=== PATIENT | female | born 1970 | race Caucasian/White ===

== ENCOUNTER 2017-02-17 17:03 | Emergency (ER) | payer OTHER ==
[2017-02-17] MEDS ORDERED: HALOPERIDOL LACTATE 5 MG/ML VIAL IM ONE ×2 (18:07→18:27)
[2017-02-17 19:31] VITALS: BP 134/93
--- NOTE | 2017-02-18 08:13 | ED Physician Documentation ---
General Adult - HISTORIAN Historian: patient - HPI Stated Complaint: pain Chief Complaint: General Adult Additional Information: Pt. is a 47 y/o white female who states that since an overdose in October she has been experiencing transient and multiple site pain all over her body. Pt. was just at [facility], blood drawn but pt. felt she waited too long with no pain treatment done so she came here. Onset: other (4 months) Timing: still present Severity: moderate Modifying Factors: none Context: spontaneous Quality: sharp Location: multiple Further Comments: no Last known Well Date: 10/23/16 - ROS CONST: no problems EYES/ENT: none CVS/RESP: none GI/: none MS/SKIN/LYMPH: neck pain, leg pain (left) NEURO/PSYCH: headache - PAST HX Past History: other (depression) Surgeries/Procedures: none Allergies/Adverse Reactions: Allergies Allergy/AdvReac Type Severity Reaction Status Date / Time benztropine AdvReac No Reaction Verified 02/17/17 18:53 codeine AdvReac No Reaction Verified 02/17/17 18:53 hydroxyzine AdvReac No Reaction Verified 02/17/17 18:53 latex AdvReac No Reaction Verified 02/17/17 18:53 morphine AdvReac No Reaction Verified 02/17/17 18:53 Home Medications: Ambulatory Orders Medication Instructions Recorded Diazepam [Diazepam] 7.5 mg PO QID 06/01/15 Eszopiclone [Lunesta] 3 mg PO PM 06/01/15 Gabapentin [Neurontin] 300 mg PO TID 06/01/15 Loratadine [Alavert] 10 mg PO BID 06/01/15 Zaleplon [Sonata] 10 mg PO PM 06/01/15 risperiDONE [Risperdal] 0.05 mg PO QID 06/01/15 traMADol HCL [Ultram] 50 mg PO TID 06/01/15 - SOCIAL HX Smoking History: cigarettes Alcohol Use: none Drug Use: marijuana - FAMILY HX Family History: No - VITAL SIGNS Vital Signs: Vital Signs Temp Pulse Resp BP Pulse Ox 97.6 F 85 20 134/93 98 02/17/17 17:05 02/17/17 17:05 02/17/17 17:05 02/17/17 17:05 02/17/17 17:05 - REVIEWED ASSESSMENTS Nursing Assessment Reviewed: Yes Vitals Reviewed: Yes Progress - Results/Orders Results/Orders: ua, uds ordered, labs from [facility] obtained and reviewed - Progress Progress: pt. was given 10 mg Haldol for pain, pt. left ama stating she wasn't about to wait around 3 more hours for no pain control Critical Care Note - Critical Care Note Total Time (mins): 0 ED Results Lab/Radiology - Lab Results Lab Results: see labs - Radiology Radiology Impressions: none ordered - Orders Orders: ED Orders Category Date Time Status Haloperidol Lactate [Haldol] Med 02/17/17 18:27 Discontinued 10 mg IM .STK-MED ONE Haloperidol Lactate [Haldol] Med 02/17/17 18:07 Discontinued 10 mg IM NOW ONE General Adult Physical Exam - PHYSICAL EXAM GENERAL APPEARANCE: moderate distress EENT: eye inspection normal, ENT inspection normal, pharynx normal, no signs of dehydration, MARIA D, no nystagmus, TM's nml NECK: normal inspection, thyroid normal RESPIRATORY: no resp distress, chest non-tender, breath sounds normal CVS: reg rate & rhythm, heart sounds normal, equal pulses, no murmur, no gallop , PMI nml ABDOMEN: soft, no organomegaly, normal bowel sounds, no abdominal bruit, no distension, non-tender BACK: normal inspection, no CVA tenderness SKIN: warm/dry, normal color EXTREMITIES: tenderness (lnees and ankles) NEURO: other (tenderness over all sirena prominences) Discharge Clincal Impression: Fibromyalgia Referrals: Primary Doctor,No [Primary Care Provider] - 2 Days Home Medications: Ambulatory Orders Diazepam [Diazepam] 7.5 mg PO QID 06/01/15 Eszopiclone [Lunesta] 3 mg PO PM 06/01/15 Gabapentin [Neurontin] 300 mg PO TID 06/01/15 Loratadine [Alavert] 10 mg PO BID 06/01/15 Zaleplon [Sonata] 10 mg PO PM 06/01/15 risperiDONE [Risperdal] 0.05 mg PO QID 06/01/15 traMADol HCL [Ultram] 50 mg PO TID 06/01/15 Condition: Stable Disposition: 07 AGAINST MEDICAL ADVICE Decision to Admit: NO Decision Time: 19:15
== END 2017-02-17 18:40 | disposition left against medical advice (07) ==
LOC: ED 17:03
DX: M79.7 Fibromyalgia (principal)
CPT/HCPCS: 96372; 99282; 99283; J1630

== ENCOUNTER 2017-02-21 19:45 | Emergency (ER) | payer OTHER ==
[2017-02-21 20:12] VITALS: BP 109/77
--- NOTE | 2017-02-21 20:15 | ED Physician Documentation ---
General Adult - HISTORIAN Historian: patient - HPI Stated Complaint: Pain to Lt ankle/calf and Rt shoulder Chief Complaint: General Adult Additional Information: I have fibromyalgia. Pain started after i overdosed in october. pain isolated to left heel, left knee, and Right shoulder. she wants something for pain. Onset: days ago Timing: still present Severity: moderate Further Comments: no Last known Well Code/Unknown Code: Unknown - ROS CONST: no problems EYES/ENT: none CVS/RESP: none GI/: none MS/SKIN/LYMPH: none NEURO/PSYCH: denies: headache, fainting, dizziness - PAST HX Past History: none Allergies/Adverse Reactions: Allergies Allergy/AdvReac Type Severity Reaction Status Date / Time lurasidone HCl [From Latuda] Allergy Verified 02/21/17 20:14 benztropine AdvReac No Reaction Verified 02/21/17 20:14 codeine AdvReac No Reaction Verified 02/21/17 20:14 hydroxyzine AdvReac No Reaction Verified 02/21/17 20:14 latex AdvReac No Reaction Verified 02/21/17 20:14 morphine AdvReac No Reaction Verified 02/21/17 20:14 Home Medications: Ambulatory Orders Medication Instructions Recorded Diazepam [Diazepam] 7.5 mg PO QID 06/01/15 Eszopiclone [Lunesta] 3 mg PO PM 06/01/15 Gabapentin [Neurontin] 300 mg PO TID 06/01/15 Loratadine [Alavert] 10 mg PO BID 06/01/15 Zaleplon [Sonata] 10 mg PO PM 06/01/15 risperiDONE [Risperdal] 0.05 mg PO QID 06/01/15 traMADol HCL [Ultram] 50 mg PO TID 06/01/15 - SOCIAL HX Smoking History: cigarettes Alcohol Use: none Drug Use: none - FAMILY HX Family History: No - VITAL SIGNS Vital Signs: Vital Signs Temp Pulse Resp BP Pulse Ox 98 F 80 18 109/77 98 02/21/17 19:46 02/21/17 19:46 02/21/17 19:46 02/21/17 19:46 02/21/17 19:46 - REVIEWED ASSESSMENTS Nursing Assessment Reviewed: Yes Vitals Reviewed: Yes ED Results Lab/Radiology - Orders Orders: ED Orders Category Date Time Status Ketorolac Tromethamine [Toradol] Med 02/21/17 20:13 Once 60 mg IM NOW ONE methylPREDNISolone SOD SUCC [Solu-MEDROL] Med 02/21/17 20:12 Once 125 mg IM NOW ONE General Adult Physical Exam - PHYSICAL EXAM GENERAL APPEARANCE: no distress EENT: ENT inspection normal NECK: normal inspection RESPIRATORY: no resp distress CVS: reg rate & rhythm ABDOMEN: soft BACK: normal inspection SKIN: warm/dry, normal color EXTREMITIES: normal range of motion, no evidence of injury, tenderness. No: edema NEURO: oriented X3, motor nml, sensation nml, cognition normal Discharge Clincal Impression: Myalgia Home Medications: Ambulatory Orders Diazepam [Diazepam] 7.5 mg PO QID 06/01/15 Eszopiclone [Lunesta] 3 mg PO PM 06/01/15 Gabapentin [Neurontin] 300 mg PO TID 06/01/15 Loratadine [Alavert] 10 mg PO BID 06/01/15 Zaleplon [Sonata] 10 mg PO PM 06/01/15 risperiDONE [Risperdal] 0.05 mg PO QID 06/01/15 traMADol HCL [Ultram] 50 mg PO TID 06/01/15 Condition: Good Disposition: 01 HOME, SELF-CARE Decision to Admit: NO Date of Decison to Admit: 02/21/17 Decision Time: 20:21
[2017-02-21] MEDS: methylPREDNISolone SOD SUCC 125 MG/2 ML VIAL IM ONE (20:38)
[2017-02-21] MEDS: KETOROLAC TROMETHAMINE 60 MG/2 ML VIAL IM ONE (20:38)
== END 2017-02-21 20:35 | disposition home or self-care (01) ==
LOC: ED 19:45
DX: M79.1 Myalgia (principal)
CPT/HCPCS: J1885; J2930; 96372; 99283

== ENCOUNTER 2017-03-07 14:07 | Emergency (ER) | payer OTHER ==
[2017-03-07] MEDS ORDERED: HALOPERIDOL LACTATE 5 MG/ML VIAL IM ONE (14:55)
[2017-03-07 15:13] LABS: APPEARANCE,URINE Clear (CLEAR); COLOR,URINE Yellow (YELLOW); OCCULT BLOOD,URINE Negative (NEGATIVE); UROBILINOGEN URINE 0.2 Eu (0.2-1.0)
[2017-03-07 15:16] LABS: AMPHETAMINE NEGATIVE ng/mL (<1000); BARBITURATES NEGATIVE ng/mL (<300); CANNABINOIDS NEGATIVE ng/mL (<50); COCAINE NEGATIVE ng/mL (<150); METHAMPHETAMINE NEGATIVE ng/mL (<1000); METHYLENEDIOXYMETHAMPHETAMINE NEGATIVE ng/mL (<500)
[2017-03-07 15:17] LABS: BASOPHILS % 0.5 (0.0-1.5); EOSINOPHILS % 2.9 % (0.0-6.8); MEAN CORPUSCULAR HEMOGLOBIN 28.3 pg (28.0-34.0); MEAN CORPUSCULAR VOLUME 89.2 fl (80.0-100.0); MONOCYTES % 3.4 % (0.0-11.0); NEUTROPHILS # 4.8 # k/uL (1.4-7.7)
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
[2017-03-07 15:27] LABS: eGFR (African) > 60; eGFR (Non-African) > 60
[2017-03-07] MEDS ORDERED: LORazepam 1 MG TABLET PO ONE (16:53)
[2017-03-07 17:43] VITALS: BP 109/77
[2017-03-07] MEDS ORDERED: NICOTINE 21mg 1 EACH PATCH.TD24 TD SCH (18:00)
== END 2017-03-07 17:20 | disposition home or self-care (01) ==
LOC: ED 14:07
DX: R45.851 Suicidal ideations (principal); M79.7 Fibromyalgia; F41.9 Anxiety disorder, unspecified
CPT/HCPCS: 80053; 80302; 80320; 80377; 81002; 85025; J1630; 96372; 99283; 99284; G0479; G0480; G0481